=== PATIENT | male | born 1950 | race Caucasian/White ===

== ENCOUNTER 2018-03-08 10:10 | Emergency (ER) | payer OTHER ==
--- NOTE | 2018-03-08 10:57 | EDPHY ---
General Time Seen by Provider: 03/08/18 10:56 Narrative: CHIEF COMPLAINT: Left index finger laceration HISTORY OF PRESENT ILLNESS: Patient presents with complaints of left index finger laceration. He was working with a tile cutter when he accidentally cut the tip of the left index finger. Moderate bleeding that stopped with pressure. He has no difficulty bending or straightening the finger. No numbness, tingling or weakness. No injury elsewhere. No debris or foreign body present. Moderately painful when he touches or moves it. No pain at rest. No radiating pain. Tetanus up-to- date. No other associated complaints or modifying factors. TIME OF INJURY: Less than 1 hr prior to arrival TETANUS STATUS: Less than 4 years ago MEDICAL/SURGICAL/SOCIAL HISTORY: Uncomplicated medical history. No anticoagulation use. Right-hand dominant REVIEW OF SYSTEMS: Ten systems reviewed and are negative unless otherwise noted in the HPI EXAMINATION General Appearance: Alert, no distress Head: normocephalic, atraumatic Cardiovascular: Radial pulses symmetric 2+. There is brisk cap refill on the left index finger Neurological: A&O, 2 point sensory symmetric, interossei and service sprinkler helper strength symmetric Skin: Warm and dry, no rash. There is a 2 cm laceration on the pad of the left index finger. There is no exposure of the underlying bone or deep tissue structures. No pulsatile bleeding. No foreign body. Extremities: Tender in the area of the left index finger laceration. No difficulty with flexion extension including superficialis and profundus. Neuro intact distal laceration. MDM: 10:55 a.m. Simple laceration to the distal phalanx of the left hand on the palmar side. No tendon injury. No foreign body. No pulsatile bleeding. Neuro intact without any injury to the nail or nail bed. I have administered a digital block. There is no indication for x-ray. Proceed with irrigation and closure 11:45 a.m. Simple laceration of the left index finger that has been repaired without any difficulty. Excellent approximation of wound borders. Full flexion retain after procedure. He will be placed in a splint due to the location of the laceration. Recommend that he uses for the next 3-5 days. Return here in 7-10 days for suture removal. No indication for antibiotic prophylaxis. ED precautions discussed. Discharged in stable condition PROCEDURE: Laceration repair Consent: Verbal Location: Left index finger, palmar, distal phalanx Length of repair: 2 cm Complexity: Simple Layer involvement: Single Anesthesia: Digital block Irrigation: Extensive Debridement: None Procedure description: Following good anesthesia, the wound was copiously irrigated. Wound bed was explored with a sterile glove, and there is no foreign body noted. No tendon injury apparent. Wound borders were approximated well with good hemostasis. Tolerated well without complication. Suture/Staple material: 5-0 Prolene, 5 simple interrupted sutures Wound care: Routine as discussed Suture/Staple removal:7-10 Days PROCEDURE: Digital Block Indication: Finger laceration Consent: Verbal Location: Left index finger Anesthesia: Lidocaine 1% plain, 0.25% Marcaine plain, 5mL Description: Base of the finger was prepped. The above was infused without difficulty. Tolerated well. Good anesthesia. Complications: None SUPERVISION: This patient was independently evaluated without direct involvement of or examination by the attending physician. ED Precautions: Worsening pain. Erythema, edema, cyanosis, pallor, paresthesia or anesthesia. - History Smoking Status: Never smoked - Objective Vital Signs: Initial Vital Signs Temperature (C) 97.9 F 03/08/18 10:12 Heart Rate 67 03/08/18 10:12 Respiratory Rate 16 03/08/18 10:12 Blood Pressure 113/72 03/08/18 10:12 O2 Sat (%) 97 03/08/18 10:12 O2 Delivery Mode Room Air Allergies/Adverse Reactions: No Known Allergies Allergy (Verified 11/20/15 10:52) Home Medications: Medication Instructions Recorded Albuterol [Proventil Inhaler HFA 2 puffs IH Q4 PRN 08/02/13 (*)] Cholecalciferol Vit D3 [Vitamin D3 2,000 units PO DAILY 08/02/13 (*)] Simvastatin [Zocor 20 mg] 20 mg PO DAILY 08/02/13 metFORMIN HCL [Glucophage 500 mg 500 mg PO DAILY 11/20/15 (*)] Aspirin [Aspirin 81mg (*)] 81 mg PO DAILY #60 tab 11/26/15 Ibuprofen [Motrin (*)] 800 mg PO Q8 #30 tab 11/26/15 Sennosides/Docusate Sodium 1 - 2 tab PO BID #30 tab 11/26/15 [Senokot-S] Departure - Departure Disposition: Home, Routine, Self-Care Clinical Impression: Laceration of index finger of left hand without complication Qualifiers: Encounter type: initial encounter Qualified Code(s): S61.211A - Laceration without foreign body of left index finger without damage to nail, initial encounter Condition: Good Instructions: Care For Your Stitches (DC), Laceration (ED), Splint Care (ED) Additional Instructions: 1. Ice and elevation as needed 2. Ibuprofen 600 mg every 6-8 hours as needed 3. Return here in 7-10 days for suture removal 4. Return here for signs of infection as discussed 5. Keep your splint in place for the 1st 3-5 days. You a remove this once daily to clean and redressed the wound Referrals: Linda Randall MD [Primary Care Provider] - As per Instructions Physician,Emergency DeptMD [Medical Doctor] - As per Instructions (7-10 days for suture removal)
[2018-03-08 12:00] VITALS: BP 116/73
== END 2018-03-08 12:07 | disposition home or self-care (01) ==
PROC: 0HQGXZZ Repair Left Hand Skin, External Approach (ICD-10-PCS; principal; 2018-03-08)
DX: S61.211A Laceration without foreign body of left index finger without damage to nail, initial encounter (principal); Z79.82 Long term (current) use of aspirin; W26.8XXA Contact with other sharp object(s), not elsewhere classified, initial encounter; Y99.0 Civilian activity done for income or pay; Y93.89 Activity, other specified